=== PATIENT | female | born 1945 | race Two or more races ===

== ENCOUNTER → 2024-06-29 11:18 | Outpatient (CLI) | payer OTHER ==
[2024-06-29 11:57] LABS: HEMATOCRIT 35.6 % (36.0-45.00); MEAN CELL VOLUME 88.3 fL (80.00-100.00); MEAN CORPUSCULAR HEMOGLOBIN 29.8 pg (27.00-32.0); MEAN CORPUSCULAR HGB CONC 33.7 g/dl (32.0-36.0); PLATELET COUNT 328 K/uL (150-450); RED BLOOD COUNT 4.03 M/uL (4.00-6.00)
[2024-06-29 12:05] LABS: PH,URINE 6.5 (5.0-8.0); URINE APPEARANCE Clear; URINE BILIRRUBIN Negative (NEGATIVE); URINE BLOOD Negative; URINE COLOR Yellow; URINE GLUCOSE Negative (NEGATIVE); URINE KETONE Negative (NEGATIVE); URINE LEUKOCYTE Moderate; URINE NITRATE Negative; URINE PROTEIN Trace (NEGATIVE); URINE UROBILINOGEN 0.2 E.U./dl
[2024-06-29 12:09] LABS: URINE BACTERIA 36.6 uL (0.0-1933); URINE RBC 2.9 uL (0.0-20.8); URINE WBC 30.2 uL (0.0-23.2)
[2024-06-29 12:19] LABS: URINE CAST 0.14 uL (0.0-1.40)
[2024-06-29 12:25] LABS: INR 0.99; PARTIAL THROMBOPLASTIN TIME 25.1 SECONDS (22.0-34.0); PROTHROMBIN TIME 10.8 SECONDS (9.0-11.5)
[2024-06-29 13:22] LABS: ALBUMIN 4.1 gm/dL (3.4-5.0); BILIRUBIN TOTAL 0.57 mg/dL (0.3-1.2); CALCIUM 9.6 mg/dL (8.5-10.1); CREATININE SERUM 1.09 mg/dL (0.55-1.02); GFR 48.55; GLOBULINA 3.9 G/DL (2.4-3.5); POTASSIUM 4.67 mEq/L (3.5-5.1)
== END | disposition home or self-care (01) ==
LOC: LAB 11:18
PROVIDERS: ATTEND Internal Medicine
DX: E11.9 Type 2 diabetes mellitus without complications (principal); I10 Essential (primary) hypertension; D68.9 Coagulation defect, unspecified; N39.0 Urinary tract infection, site not specified

== ENCOUNTER 2024-07-06 12:52 | Inpatient (IN) | payer OTHER ==
[2024-07-06] VITALS (9 sets, daily range): BP systolic 140–199; BP diastolic 63–111; O2SAT 100
[~2024-07-06] VITALS: Ht 160 cm; Wt 65.8 kg
[2024-07-06] MEDS ORDERED: FUROsemide 40 MG/4 ML VIAL ONE (13:06)
[2024-07-06 13:18] LABS: ABG PH 7.454 (7.35-7.45); ABG PO2 382.6 mmHg (80-100); ABG pCO2 28.6 mmHg (35-45); BASE EXCESS -2.9 mmol/l; BICARBONATE 19.6 mmol/l (23-25); Tco2 20.5 mmol/l
[2024-07-06] MEDS ORDERED: LEVALBUTEROL HCL 1.25 MG/3 ML SOLUTION IH SCH (13:44)
[2024-07-06] MEDS ORDERED: IPRATROPIUM BROMIDE 0.5 MG/2.5 ML AMPUL.NEB IH SCH (13:44)
[2024-07-06] MEDS ORDERED: PANTOPRAZOLE SODIUM 40 MG/VIAL VIAL IV PUSH SCH (13:45)
[2024-07-06] MEDS ORDERED: 0.9 % SODIUM CHLORIDE 1,000 ML IV SCH (13:45)
[2024-07-06] MEDS ORDERED: CEFTRIAXONE SODIUM 1,000 MG in DEXTROSE 5 % IN WATER 100 ML IV SCH (13:45)
[2024-07-06] MEDS ORDERED: IRBESARTAN300 MG PO (13:49)
[2024-07-06] MEDS ORDERED: ATORVASTATIN CA40 MG PO (13:49)
[2024-07-06] MEDS ORDERED: GLIMEPIRIDE2 M1 PO (13:49)
--- NOTE | 2024-07-06 13:49 | NUR ---
PTE LLEGA EN AMBULANCIA DESDE [facility] POR COMPLICAXCION DE CIRUGIA , LLEGA CON VENTILACION MECANICA , CON DRIP DE INTROPIN Y .9NSS . SE OBSERVA VENOPUNCION PATENTE Y FRANK DE EDEMA . PE LLEGA CON FOLIE CAHTETE SIN RETORNO EN ORINA LA CUAL SE RE INTENTA NUEVAMENTE A PASAR FOLIE A LA PTE SIN EGRESO DE ORINA. EL SUJATA ORDENA SONOGRAMA ABDOMINAL Y PELVICO . SE LE ELZBIETA S/V Y SE EJECUTA ORDEN MEDICA . SE LE RALIZA EKG A PTE Y SE NOTIFICA .A EL PERSONAL PARA RX PORTABLE . SE MANTIENE EN ESPERA DE RESULTADO DE LABORATORIO.
[2024-07-06] MEDS ORDERED: NOREPINEPHRINE BITARTRATE 8 MG in DEXTROSE 5 % IN WATER 250 ML IV SCH (14:00)
[2024-07-06] MEDS ORDERED: ONDANSETRON HCL 2 MG/ML VIAL IV PRN (14:00)
[2024-07-06 14:46] LABS: LDH 231 U/L (84-246)
[2024-07-06 14:47] LABS: PHOSPHOKINASE CREATININE 375 U/L (26-192)
[2024-07-06 15:10] LABS: allen test SATISFACTORY; o2 100 %; puncture site RADIAL RIGHT
[2024-07-06 15:11] LABS: mode MECHANI VENTILATOR
[2024-07-06] MEDS ORDERED: CEFTRIAXONE SODIUM 1,000 MG VIAL ONE (15:12)
[2024-07-06] MEDS ORDERED: LEVALBUTEROL HCL 1.25 MG/3 ML SOLUTION IH ONE (17:23)
[2024-07-06] MEDS ORDERED: IPRATROPIUM BROMIDE 0.5 MG/2.5 ML AMPUL.NEB IH ONE (17:23)
[2024-07-06] MEDS ORDERED: PROPOFOL 100 ML IV SCH ×2 (20:00→23:00)
[2024-07-06] MEDS ORDERED: PROPOFOL 10,000 MCG/ML VIAL ONE (20:10)
[2024-07-06 21:33] LABS: HEMATOCRIT 37.5 % (36.0-45.00); HEMOGLOBIN 12.3 g/dL (12.0-15.00); MEAN CELL VOLUME 89.2 fL (80.00-100.00); MEAN CORPUSCULAR HEMOGLOBIN 29.4 pg (27.00-32.0); MEAN CORPUSCULAR HGB CONC 32.9 g/dl (32.0-36.0); PLATELET COUNT 319 K/uL (150-450); RED CELL DISTRIBUTION WIDTH 13.9 % (11.5-14.5)
[2024-07-06 21:56] LABS: ABG PH 7.447 (7.35-7.45); ABG PO2 99.7 mmHg (80-100); ABG pCO2 37.7 mmHg (35-45); BASE EXCESS 1.6 mmol/l; BICARBONATE 25.4 mmol/l (23-25); Tco2 26.6 mmol/l
[2024-07-06 22:08] LABS: INR 1.06; PARTIAL THROMBOPLASTIN TIME 21.9 SECONDS (22.0-34.0); PROTHROMBIN TIME 11.5 SECONDS (9.0-11.5); URINE APPEARANCE Cloudy; URINE BILIRRUBIN Negative (NEGATIVE); URINE BLOOD Large; URINE COLOR Yellow; URINE GLUCOSE Negative (NEGATIVE); URINE KETONE 15 (NEGATIVE); URINE LEUKOCYTE Moderate; URINE NITRATE Negative; URINE UROBILINOGEN 0.2 E.U./dl
[2024-07-06 22:11] LABS: URINE BACTERIA 330.4 uL (0.0-1933); URINE CAST 2.65 uL (0.0-1.40); URINE EPITHELIAL CELLS 29.7 uL (0.0-38.8); URINE WBC 80.2 uL (0.0-23.2)
[2024-07-06 22:12] LABS: CHOL HDL RATIO 2.6 (0-5.0)
[2024-07-06 22:21] LABS: ALBUMIN 3.3 gm/dL (3.4-5.0); BILIRUBIN TOTAL 0.64 mg/dL (0.3-1.2); BILIRUBIN,CONJUGATED 0.15 mg/dL (0.0-0.2); BILIRUBIN,UNCONJUGATED 0.49 mg/dL (0.0-0.6); CALCIUM 8.7 mg/dL (8.5-10.1); CREATININE SERUM 1.44 mg/dL (0.55-1.02); GFR 35.2; GLOBULINA 2.8 G/DL (2.4-3.5); MAGNESIUM 1.6 mg/dL (1.8-2.4); PHOSPHOROUS 3.5 mg/dL (2.5-4.9); POTASSIUM 3.59 mEq/L (3.5-5.1); T4 FREE 1.15 NG/ML (0.76-1.46); TOTAL PROTEIN 6.1 gm/dL (6.4-8.2); TSH 0.58 uIU/mL (0.358-3.74)
[2024-07-06 22:24] LABS: URINE PROTEIN 100 (NEGATIVE)
[2024-07-06 22:25] LABS: C-REACTIVE PROTEIN 2.36 MG/DL (0.00-0.29)
[2024-07-06 22:37] LABS: allen test SATISFACTORY; mode MECHANI VENTILATOR; o2 35 %; puncture site RADIAL LEFT
[2024-07-07] VITALS (10 sets, daily range): BP systolic 109–166; BP diastolic 54–93; O2SAT 97–100
[2024-07-07] MEDS ORDERED: PROPOFOL 10,000 MCG/ML VIAL ONE (01:18)
[2024-07-07 06:00] LABS: PH,URINE 5.5 (5.0-8.0); URINE APPEARANCE Clear; URINE BILIRRUBIN Negative (NEGATIVE); URINE BLOOD Moderate; URINE COLOR Yellow; URINE GLUCOSE Negative (NEGATIVE); URINE KETONE Trace (NEGATIVE); URINE LEUKOCYTE Small; URINE NITRATE Negative; URINE PROTEIN Trace (NEGATIVE); URINE UROBILINOGEN 0.2 E.U./dl
[2024-07-07 06:04] LABS: URINE BACTERIA 108.9 uL (0.0-1933); URINE EPITHELIAL CELLS 5.3 uL (0.0-38.8); URINE RBC 132.2 uL (0.0-20.8); URINE WBC 46.8 uL (0.0-23.2)
[2024-07-07 06:08] LABS: URINE CAST 0.88 uL (0.0-1.40)
[2024-07-07] MEDS ORDERED: MAGNESIUM SULFATE IN WATER 50 ML IV NR (07:15)
[2024-07-07] MEDS ORDERED: PROPOFOL 100 ML IV SCH (07:45)
[2024-07-07 08:45] LABS: ABG PH 7.439 (7.35-7.45); ABG PO2 153.2 mmHg (80-100); ABG pCO2 36.4 mmHg (35-45); BASE EXCESS 0.4 mmol/l; BICARBONATE 24.2 mmol/l (23-25); SaO2 99.4 %; Tco2 25.3 mmol/l
[2024-07-07] MEDS ORDERED: POLYVINYL ALCOHOL 15 ML DROPS OP SCH (09:00)
[2024-07-07] MEDS ORDERED: CHLORHEXIDINE GLUCONATE 15ML BRUSH KIT MM SCH (09:00)
[2024-07-07] MEDS ORDERED: CHLORHEXIDINE GLUCONATE 120 ML BOTTLE TOP ONE (09:27)
[2024-07-07] MEDS ORDERED: cloNIDine 0.2 MG/24 H PATCH.TDWK TD STA (10:01)
[2024-07-07 10:08] LABS: ALBUMIN 3.3 gm/dL (3.4-5.0); BILIRUBIN TOTAL 0.44 mg/dL (0.3-1.2); CALCIUM 8.2 mg/dL (8.5-10.1); CREATININE SERUM 1.38 mg/dL (0.55-1.02); GFR 36.98; GLOBULINA 2.8 G/DL (2.4-3.5); MAGNESIUM 1.8 mg/dL (1.8-2.4); PHOSPHOROUS 4.1 mg/dL (2.5-4.9); POTASSIUM 3.56 mEq/L (3.5-5.1); TOTAL PROTEIN 6.1 gm/dL (6.4-8.2)
[2024-07-07] MEDS ORDERED: LABETALOL HCL 200 MG TABLET PO NR (11:15)
[2024-07-07 11:32] LABS: allen test SATISFACTORY; mode MECHANI VENTILATOR; o2 35 %; puncture site RADIAL RIGHT
[2024-07-07 12:15] LABS: ABG PH 7.505 (7.35-7.45); ABG PO2 174.5 mmHg (80-100); ABG pCO2 30.1 mmHg (35-45); BASE EXCESS 1.1 mmol/l; BICARBONATE 23.2 mmol/l (23-25); SaO2 99.7 %; Tco2 24.1 mmol/l
[2024-07-07 12:38] LABS: HEMOGLOBIN 10.7 g/dL (12.0-15.00); MEAN CELL VOLUME 88.9 fL (80.00-100.00); MEAN CORPUSCULAR HEMOGLOBIN 29.9 pg (27.00-32.0); MEAN CORPUSCULAR HGB CONC 33.6 g/dl (32.0-36.0); PLATELET COUNT 273 K/uL (150-450); RED CELL DISTRIBUTION WIDTH 14.4 % (11.5-14.5)
[2024-07-07 14:49] LABS: ABG PH 7.453 (7.35-7.45); ABG PO2 142.8 mmHg (80-100); ABG pCO2 37.9 mmHg (35-45); BASE EXCESS 2.1 mmol/l; SaO2 99.3 %; Tco2 27.1 mmol/l
[2024-07-07] MEDS ORDERED: LABETALOL HCL 200 MG TABLET PO SCH (17:00)
[2024-07-07 17:11] LABS: INFLUENZA A AG NEGATIVE (NEGATIVE)
[2024-07-07 18:50] LABS: o2 35 %
[2024-07-07 18:51] LABS: allen test SATISFACTORY; mode MECHANI VENTILATOR; puncture site RADIAL RIGHT
[2024-07-07 18:57] LABS: allen test SATISFACTORY; mode NASAL CANNULA; o2 32 %; puncture site RADIAL RIGHT
[2024-07-08 04:00] VITALS: BP 157/59; O2SAT 99
[2024-07-08 06:04] LABS: ALBUMIN 3.4 gm/dL (3.4-5.0); BILIRUBIN TOTAL 0.62 mg/dL (0.3-1.2); CALCIUM 8.6 mg/dL (8.5-10.1); CREATININE SERUM 1.01 mg/dL (0.55-1.02); GFR 53.01; GLOBULINA 3.1 G/DL (2.4-3.5); MAGNESIUM 2.2 mg/dL (1.8-2.4); PHOSPHOROUS 3.1 mg/dL (2.5-4.9); POTASSIUM 4.01 mEq/L (3.5-5.1); TOTAL PROTEIN 6.5 gm/dL (6.4-8.2)
[2024-07-08 06:16] LABS: HEMATOCRIT 31.6 % (36.0-45.00); HEMOGLOBIN 10.6 g/dL (12.0-15.00); MEAN CELL VOLUME 90.1 fL (80.00-100.00); MEAN CORPUSCULAR HEMOGLOBIN 30.2 pg (27.00-32.0); MEAN CORPUSCULAR HGB CONC 33.5 g/dl (32.0-36.0); PLATELET COUNT 245 K/uL (150-450); RED BLOOD COUNT 3.51 M/uL (4.00-6.00); RED CELL DISTRIBUTION WIDTH 14.5 % (11.5-14.5)
[2024-07-08 07:27] VITALS: BP 122/66; O2SAT 97
[2024-07-08 12:00] VITALS: BP 149/55; O2SAT 98
[2024-07-08 16:00] VITALS: BP 129/54; O2SAT 100
[2024-07-08] MEDS ORDERED: AMLODIPINE BESYLATE 5 MG TABLET PO SCH (17:00)
[2024-07-08] MEDS ORDERED: cloNIDine HCL 0.2 MG TABLET PO SCH (17:00)
[2024-07-08 20:00] VITALS: BP 109/91; O2SAT 100
[2024-07-08 23:25] VITALS: BP 132/54; O2SAT 100
[2024-07-09 03:59] VITALS: BP 133/48; O2SAT 100
[2024-07-09 07:02] VITALS: BP 166/58; O2SAT 100
[2024-07-09] MEDS ORDERED: SODIUM CHLORIDE 0.45 % 1,000 ML IV SCH (08:45)
[2024-07-09 09:00] LABS: PLATELET ESTIMATE NORMAL (NORMAL)
[2024-07-09] MEDS ORDERED: CLONIDINE HCL 0.1 MG TABLET PO SCH (09:00)
[2024-07-09] MEDS ORDERED: ASPIRIN 81 MG TABLET.EC PO SCH (09:00)
[2024-07-09] MEDS ORDERED: cloNIDine HCL 0.2 MG TABLET PO SCH (09:00)
[2024-07-09] MEDS ORDERED: IRBESARTAN 300 MG TABLET PO SCH (09:00)
[2024-07-09] MEDS ORDERED: INDAPAMIDE 1.25 MG TABLET PO SCH (09:00)
[2024-07-09] MEDS ORDERED: ENOXAPARIN SODIUM 30 MG/0.3 ML SYRINGE SUBCUTANEO SCH (09:00)
[2024-07-09 10:12] LABS: BASO % 0.3 % (0.1-1.2); EOS # 0.22 (0.04-0.54); EOS % 2.4 % (0.7-7.0); HEMATOCRIT 30.5 % (34.1-44.9); HEMOGLOBIN 9.9 g/dL (11.2-15.7); LYMPH # 2.54 (1.18-3.74); LYMPH % 27.3 % (19.3-53.1); MEAN CORPUSCULAR HEMOGLOBIN 29.1 pg (25.6-32.2); MONO # 0.61 (0.24-0.82); MONO % 6.6 % (4.7-12.5); NEUT # 5.88 (1.56-6.13); NEUT % 63.1 % (34.0-71.1); PLATELET COUNT 240 K/uL (163-369); RED CELL DISTRIBUTION WIDTH 14.4 % (11.6-14.4)
[2024-07-09] MEDS ORDERED: CLONIDINE HCL0.2 MG PO (10:17)
[2024-07-09] MEDS ORDERED: AMLODIPINE BESYL5 MG PO (10:17)
[2024-07-09] MEDS ORDERED: ST. JOSEPH ASPI81 M2 PO (10:17)
[2024-07-09] MEDS ORDERED: LABETALOL HCL200 MG PO (10:17)
[2024-07-09] MEDS ORDERED: INDAPAMIDE1.25 MG PO (10:17)
[2024-07-09] MEDS ORDERED: CEPHALEXIN500 MG PO (10:18)
[2024-07-09] MEDS ORDERED: MUPIROCIN22 GM TOP (10:19)
[2024-07-09] MEDS ORDERED: PANTOPRAZOLE SO40 MG PO (10:19)
[2024-07-09] MEDS ORDERED: TRAM1TAB98 PO (10:19)
[2024-07-09 10:50] VITALS: BP 167/62; O2SAT 100
[2024-07-09 10:57] LABS: BILIRUBIN TOTAL 0.4 mg/dL (0.3-1.2); CALCIUM 8.3 mg/dL (8.5-10.1); CREATININE SERUM 0.87 mg/dL (0.55-1.02); GFR 62.97; GLOBULINA 3.1 G/DL (2.4-3.5); PHOSPHOROUS 2.2 mg/dL (2.5-4.9); POTASSIUM 3.57 mEq/L (3.5-5.1); TOTAL PROTEIN 6.1 gm/dL (6.4-8.2)
[2024-07-09 13:58] VITALS: BP 157/62; O2SAT 100
[2024-07-14] MEDS ORDERED: cloNIDine 0.2 MG/24 H PATCH.TDWK TD SCH (09:00)
== END 2024-07-09 12:05 | disposition home or self-care (01) | DRG 296 ==
LOC: ER 12:52 → ICU-2 14:06 → ICU 14:06
PROVIDERS: Internal Medicine; Internal Medicine Infectious Disease; ADMIT Internal Medicine; ATTEND Internal Medicine
PROC: BW28ZZZ Computerized Tomography (CT Scan) of Head (ICD-10-PCS; principal; 2024-07-06)
PROC: BW4GZZZ Ultrasonography of Pelvic Region (ICD-10-PCS; 2024-07-06)
PROC: BW40ZZZ Ultrasonography of Abdomen (ICD-10-PCS; 2024-07-06)
PROC: B24BZZZ Ultrasonography of Heart with Aorta (ICD-10-PCS; 2024-07-06)
DX: I46.9 Cardiac arrest, cause unspecified (principal); A41.9 Sepsis, unspecified organism; I63.89 Other cerebral infarction; R57.0 Cardiogenic shock; R65.21 Severe sepsis with septic shock; N17.0 Acute kidney failure with tubular necrosis; E87.1 Hypo-osmolality and hyponatremia; I31.39 Other pericardial effusion (noninflammatory); I95.89 Other hypotension; I67.1 Cerebral aneurysm, nonruptured; I10 Essential (primary) hypertension; E11.9 Type 2 diabetes mellitus without complications; Z79.4 Long term (current) use of insulin; E78.5 Hyperlipidemia, unspecified